=== PATIENT | male | born 1965 | race Caucasian/White ===

== ENCOUNTER 2021-04-08 15:56 | Emergency (ER) | payer SELFPAY | END 2021-04-09 02:37 | disposition left against medical advice (07) | LOC: ANHED 16:26 | DX: Z53.21 Procedure and treatment not carried out due to patient leaving prior to being seen by health care provider (principal) | CPT/HCPCS: 99199 ==

== ENCOUNTER 2021-04-13 13:53 | Emergency (ER) | payer SELFPAY ==
[2021-04-13 13:59] VITALS: BP 147/87; PULSE 102; RESP 17; TEMP 36.4; O2SAT 100
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
[2021-04-13] MEDS: KETOROLAC 30 MG/ML VIAL (*BKC) IM (14:39)
== END 2021-04-13 14:42 | disposition home or self-care (01) ==
LOC: ANHED 14:35
PROVIDERS: Emergency Provider Emergency Medicine
DX: S30.0XXA Contusion of lower back and pelvis, initial encounter (principal); F17.200 Nicotine dependence, unspecified, uncomplicated; Y35.813A Legal intervention involving manhandling, suspect injured, initial encounter
CPT/HCPCS: 96372; 99283; J1885

== ENCOUNTER 2022-06-13 14:58 | Emergency (ER) | payer MEDICAID, SELFPAY ==
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
[2022-06-13 15:27] VITALS: BP 145/88; PULSE 101; RESP 16; TEMP 37.3; O2SAT 97
== END 2022-06-13 15:39 | disposition short-term general hospital (02) ==
PROVIDERS: Emergency Provider Registered Nurse
DX: S81.801A Unspecified open wound, right lower leg, initial encounter (principal); S81.002A Unspecified open wound, left knee, initial encounter; L03.116 Cellulitis of left lower limb; L03.115 Cellulitis of right lower limb; V18.4XXA Pedal cycle driver injured in noncollision transport accident in traffic accident, initial encounter; F17.210 Nicotine dependence, cigarettes, uncomplicated
CPT/HCPCS: 99212; G0463

== ENCOUNTER 2022-06-13 16:01 | Observation (INO) | payer MEDICAID, SELFPAY ==
--- NOTE | ~2022-06-13 | US_ITS ---
EXAMINATION: US arterial ankle brachial ind DATE: 06/16/2022 08:26 INDICATION: Peripheral arterial disease. TECHNIQUE: Segmental pressures and plethysmographic and Doppler waveforms of the brachial and lower e xtremity arteries were obtained. COMPARISON: None. FINDINGS: Right and left brachial artery pressures of 123 mm Hg and 113 mm Hg, respectively, are concordant (no rmal difference <= 30 mmHg). The right ankle-brachial index (ALINA) is 1.31 (normal >= 0.9-1.0). The right great toe-brachial index (TBI) is 0.72 (normal >= 0.65). Arterial Doppler waveforms are at least triphasic at the ankle. The left ALINA is 1.26. The left TBI is 0.64. Arterial Doppler waveforms are at least triphasic at the ankle. IMPRESSION: 1. Borderline decreased left TBI, consistent with left-sided arterial occlusive disease. Note that AB I may be overestimated if arteries are calcified. Reviewed, dictated and finalized at location A. TICS DIRECTOR IMPRESSION: 1. Borderline decreased left TBI, consistent with left-sided arterial occlusive disease. Note that ALINA may be overestimated if arteries are calcified.
[2022-06-13 16:07] VITALS: BP 158/90; PULSE 84; RESP 17; TEMP 36.9; O2SAT 96
[2022-06-13 17:11] LABS: Basophils Absolute Auto 0.1 K/mm3 (0.0-0.1); Basophils Percent Auto 0.5 % (0.2-1.2); Eosinophils Absolute Auto 0.1 K/mm3 (0-0.3); Eosinophils Percent Auto 0.9 % (0-4.4); Hematocrit 43.9 % (42.0-52.0); Hemoglobin 14.8 g/dL (14.0-18.0); Immature Granulocyte Absolute 0.05 K/mm3 (0.00-0.031); Immature Granulocyte Percent A 0.5 % (0-0.5); Lymphocytes Absolute Auto 2.04 K/mm3 (0.9-3.2); Lymphocytes Percent Auto 21.2 % (18.3-44.2); Mean Corpuscular HGB Conc 33.7 g/dl (32-36); Mean Corpuscular Hemoglobin 31.4 pg (26-34); Mean Platelet Volume 9.8 fl (7.4-10.4); Monocytes Absolute Auto 1.1 K/mm3 (0.1-0.6); Neutrophils Absolute Auto 6.3 K/mm3 (1.3-6.7); Neutrophils Percent Auto 65.9 % (45.5-73.1); Platelet Count Result 326 k/mm3 (150-375); Red Blood Count 4.72 M/mm3 (4.6-6.20); Red Cell Distribution Width 12.4 % (11.5-14.5); White Blood Count 9.6 K/mm3 (4.5-10.0)
[2022-06-13 17:23] LABS: Alanine Aminotransferase 15 U/L (6-50); Albumin Level 4.2 g/dL (3.5-5.1); Alkaline Phosphatase 127 U/L (38-126); Anion Gap 7 mmol/L (8-16); Aspartate Amino Transferase 22 U/L (17-59); Bilirubin,Total 0.3 mg/dL (0.2-1.3); Blood Urea Nitrogen 10 mg/dL (9-20); Calcium 8.6 mg/dL (8.4-10.2); Carbon Dioxide 29 mmol/L (22-30); Chloride 102 mmol/L (98-107); Estimated CRCL calculation 80 ml/min; Estimated Glomerular Filt Rate > 60; Glucose 105 mg/dL (65-110); Lactic Acid Reflex 1.4 mmol/L (0.7-2.0); Potassium 3.4 mmol/L (3.4-5.0); Sodium 138 mmol/L (137-145)
[2022-06-13 17:50] LABS: Influenza A QL RT-PCR Negative (Negative); Influenza B QL RT-PCR Negative (Negative); SARS-CoV-2 RNA PCR Negative
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
[2022-06-13] MEDS: SODIUM CHLORIDE 0.9% IV 1,000 ML 150 ML IV CONT (18:05)
[2022-06-13 19:56] VITALS: BP 148/96; PULSE 92; RESP 16; O2SAT 99
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
[2022-06-13 21:18] VITALS: BP 164/88; PULSE 88; RESP 16; O2SAT 97
[2022-06-13] MEDS: NICOTINE (*PBKC) 21 MG PATCH 1 PATCH TRANSDERM (21:23)
[2022-06-13 21:36] VITALS: BMI 27.7
--- NOTE | 2022-06-13 21:45 | PC.NURSE ---
This patient, Pete May, was admitted to [facility] Surg Room 314-02. Patient/family oriented to hospital policies and general routines including ID bracelet, bed and alarms, visiting hours, pain management, procedures, bathroom and other care routines, personal items, smoking policy, room service/diet, and visiting hours. Information on how to activate the Rapid Response Team has been discussed. Patient/Family are encouraged to report perceived risks to care and to ask questions if they do not understand what they are told or what they should do.
[2022-06-13 21:47] VITALS: BP 153/95; PULSE 93; RESP 18; TEMP 36.2; O2SAT 99
[2022-06-13 21:48] VITALS: BMI 27.7
[2022-06-14 05:47] VITALS: BP 151/86; PULSE 80; RESP 18; TEMP 36.6; O2SAT 98
[2022-06-14 08:27] LABS: Glucose Point of Care 89 mg/dl (65-105)
[2022-06-14 08:43] LABS: Basophils Percent Auto 0.4 % (0.2-1.2); Eosinophils Absolute Auto 0.2 K/mm3 (0-0.3); Eosinophils Percent Auto 1.7 % (0-4.4); Hematocrit 37.9 % (42.0-52.0); Hemoglobin 12.7 g/dL (14.0-18.0); Immature Granulocyte Absolute 0.05 K/mm3 (0.00-0.031); Immature Granulocyte Percent A 0.6 % (0-0.5); Lymphocytes Absolute Auto 2.39 K/mm3 (0.9-3.2); Lymphocytes Percent Auto 26.7 % (18.3-44.2); Mean Corpuscular HGB Conc 33.5 g/dl (32-36); Mean Corpuscular Hemoglobin 31.7 pg (26-34); Mean Corpuscular Volume 94.5 fl (80-100); Mean Platelet Volume 10.2 fl (7.4-10.4); Monocytes Percent Auto 10.7 % (2.6-8.5); Neutrophils Absolute Auto 5.4 K/mm3 (1.3-6.7); Neutrophils Percent Auto 59.9 % (45.5-73.1); Platelet Count Result 263 k/mm3 (150-375); Red Blood Count 4.01 M/mm3 (4.6-6.20); Red Cell Distribution Width 12.4 % (11.5-14.5)
[2022-06-14 08:56] LABS: Anion Gap 3 mmol/L (8-16); Blood Urea Nitrogen 9 mg/dL (9-20); Calcium 7.9 mg/dL (8.4-10.2); Carbon Dioxide 28 mmol/L (22-30); Chloride 107 mmol/L (98-107); Estimated CRCL calculation 111 ml/min; Estimated Glomerular Filt Rate > 60; Glucose 106 mg/dL (65-110); Potassium 3.1 mmol/L (3.4-5.0); Sodium 138 mmol/L (137-145)
[2022-06-14] MEDS: POTASSIUM CHLORIDE 20 MEQ TABLET 40 MEQ PO (10:31)
[2022-06-14 10:39] LABS: Hemoglobin A1C 5.1 % (<5.7)
[2022-06-14 11:48] LABS: Glucose Point of Care 158 mg/dl (65-105)
[2022-06-14 14:00] VITALS: BP 126/78; PULSE 82; RESP 20; TEMP 36.4; O2SAT 97
[2022-06-14] MEDS: MUPIROCIN 2% OINT 22 GM TUBE 1 APPLIC TOPICAL (14:11)
[2022-06-14 16:47] LABS: Glucose Point of Care 112 mg/dl (65-105)
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
[2022-06-14 20:25] VITALS: BP 128/65; PULSE 79; RESP 16; TEMP 36.7; O2SAT 94
[2022-06-14] MEDS: NICOTINE (*PBKC) 4 MG GUM PO (21:24)
[2022-06-14] MEDS: NICOTINE (*PBKC) 21 MG PATCH 1 PATCH TRANSDERM (21:25)
[2022-06-14] MEDS: ACETAMINOPHEN 325 MG TABLET 650 MG PO (21:29)
[2022-06-14 21:52] LABS: Glucose Point of Care 115 mg/dl (65-105)
[2022-06-15 05:51] VITALS: BP 128/68; PULSE 72; RESP 18; TEMP 36.3; O2SAT 95
[2022-06-15 06:46] LABS: Hematocrit 37.1 % (42.0-52.0); Hemoglobin 12.2 g/dL (14.0-18.0); Mean Corpuscular HGB Conc 32.9 g/dl (32-36); Mean Corpuscular Hemoglobin 30.9 pg (26-34); Mean Corpuscular Volume 93.9 fl (80-100); Mean Platelet Volume 10.1 fl (7.4-10.4); Platelet Count Result 276 k/mm3 (150-375); Red Blood Count 3.95 M/mm3 (4.6-6.20); Red Cell Distribution Width 12.3 % (11.5-14.5); White Blood Count 7.5 K/mm3 (4.5-10.0)
[2022-06-15 07:04] LABS: Vancomycin Trough 10.4 ug/mL (10.0-20.0)
[2022-06-15 07:36] LABS: Anion Gap 2 mmol/L (8-16); Blood Urea Nitrogen 9 mg/dL (9-20); Calcium 8.3 mg/dL (8.4-10.2); Carbon Dioxide 28 mmol/L (22-30); Chloride 107 mmol/L (98-107); Estimated CRCL calculation 99 ml/min; Estimated Glomerular Filt Rate > 60; Glucose 92 mg/dL (65-110); Potassium 3.8 mmol/L (3.4-5.0); Sodium 137 mmol/L (137-145)
[2022-06-15 08:16] LABS: Glucose Point of Care 92 mg/dl (65-105)
[2022-06-15] MEDS: hydroCHLOROthiazide 25 MG TABLET PO (09:30)
[2022-06-15] MEDS: ENOXAPARIN 40 MG/0.4 ML SYRINGE SUB-Q (09:30)
--- NOTE | 2022-06-15 11:25 | PM.IMPN ---
Progress Note: A&P Assessment and Plan (1) Cellulitis of both lower extremities: Code(s): L03.115 - Cellulitis of right lower limb; L03.116 - Cellulitis of left lower limb Status: Acute Assessment and Plan: Started on vancomycin in the ER on June 13 and continued yesterday in the hospital, MRSA swab pending, will discontinue vancomycin at this time. If this was truly cellulitis as opposed to vascular disease, would need to broaden antibiotic coverage, however, no white count noted despite inadequate treatment. Will transition to doxycycline due to some possible improvement on vancomycin. Follow-up vascular studies. Appreciate wound care consultation, wound culture ordered A1c is 5.1 ABIs pending (2) Tobacco dependence: Code(s): F17.200 - Nicotine dependence, unspecified, uncomplicated Status: Acute Assessment and Plan: Pack and half a day smoker Plan DVT prophylaxis with Lovenox GI prophylaxis not indicated Code status full code Subjective Date/time seen: 06/15/22 11:25 Interval history: No overnight events noted. No chest pain or shortness of breath. No nausea, vomiting or diarrhea. No fevers or chills. Review of Systems Review of Systems: 12 point review of systems was assessed and was negative except as noted in the HPI Exam Narrative: General: No acute distress, alert and oriented per baseline HEENT: Atraumatic, normocephalic, mucous membranes moist CV: Regular rate and rhythm, S1, S2 Lungs: Clear to auscultation bilaterally, no rales or crackles noted, no wheezes, good air entry Abdomen: Soft, nontender, nondistended Extremities: Multiple scattered wounds with scabbing, some erythema surrounding the wounds, one on left knee about 5 cm across in diameter, a couple less than 3 cm on right knee, and a bandaged one on right tibia and right ankle, bandages are c/d/i, erythema improved per skin markings Skin: No rashes noted, no lesions or wounds seen Psych: Euthymic, normal affect Objective Data Vital Signs Vital Signs: Vital Signs - 24 hr 06/14/22 14:00 06/14/22 20:25 06/15/22 05:51 Temperature 97.5 F L 98.1 F 97.3 F L Pulse Rate 82 79 72 Respiratory Rate 20 16 18 Blood Pressure 126/78 128/65 128/68 Pulse Oximetry 97 94 95 Oxygen Delivery 01/01/23 08:00 Temperature Pulse Rate Respiratory Rate Blood Pressure Pulse Oximetry Oxygen Delivery Room Air Intake/Output Intake/Output: Intake & Output 06/12/22 06/13/22 06/14/22 06/15/22 23:59 23:59 23:59 23:59 Intake Total 500 3210 1030 Output Total 1740 1500 Balance 500 1470 -470 Meds/Results Medications: Active Medications Generic Name Dose Route Start Last Admin Trade Name Freq PRN Reason Stop Dose Admin Acetaminophen 650 mg 06/13/22 17:50 06/14/22 21:29 Acetaminophen 325 Mg Tablet PO 650 mg Q4H PRN Administration Mild Pain (1-3) or Fever Dextrose 12.5 gm 06/14/22 02:26 Dextrose 50% 25 Gm/50 Ml Syringe IV PUSH PRN PRN Hypoglycemia Protocol Enoxaparin Sodium 40 mg 06/14/22 09:00 06/15/22 09:30 Enoxaparin 40 Mg/0.4 Ml Syringe SUB-Q 40 mg DAILY KINZA Administration Glucagon 1 mg 06/14/22 02:26 Glucagon For Inj 1 Mg Vial IM PRN PRN Hypoglycemia Protocol Glucose 15 gm 06/14/22 02:26 Glucose Oral Gel 15 Gm Of Glucse In 37.5 Gm Tube PO PRN PRN Hypoglycemia Protocol Hydrochlorothiazide 25 mg 06/15/22 09:00 06/15/22 09:30 Hydrochlorothiazide 25 Mg Tablet PO 25 mg QAM KINZA Administration Dextrose 1,000 mls @ 100 mls/hr 06/14/22 02:26 Dextrose 5% 1,000 Ml IVPB PRN PRN Hypoglycemia Protocol Vancomycin HCl 1,500 mg in 500 mls @ 333.333 mls/hr 06/15/22 21:00 Vancomycin 1,500 Mg/D5w 500 Ml IVPB Q12H KINZA Insulin Aspart 3 - 6 units 06/14/22 08:00 06/15/22 08:18 Insulin Aspart (*Bkc) 100 Units/Ml SUB-Q Not Given TIDWM KINZA Protocol
[2022-06-15 11:41] LABS: Glucose Point of Care 180 mg/dl (65-105)
[2022-06-15 14:00] VITALS: BP 123/80; PULSE 76; RESP 20; TEMP 36.2; O2SAT 98
[2022-06-15] MEDS: DOXYCYCLINE HYCLATE 100 MG TABLET PO ×2 (15:28→20:09)
[2022-06-15 16:57] LABS: Glucose Point of Care 102 mg/dl (65-105)
[2022-06-15 20:25] LABS: Glucose Point of Care 122 mg/dl (65-105)
[2022-06-15 21:37] VITALS: BP 108/73; PULSE 82; RESP 18; TEMP 36.6; O2SAT 95
[2022-06-15] MEDS: NICOTINE (*PBKC) 4 MG GUM PO (21:49)
[2022-06-15] MEDS: LORazepam (*CRX) 0.5 MG TABLET PO (22:47)
[2022-06-16 05:49] VITALS: BP 123/76; PULSE 71; RESP 18; TEMP 36.7; O2SAT 97
[2022-06-16 07:02] LABS: Hematocrit 40.3 % (42.0-52.0); Hemoglobin 13.1 g/dL (14.0-18.0); Mean Corpuscular HGB Conc 32.5 g/dl (32-36); Mean Corpuscular Hemoglobin 31.1 pg (26-34); Mean Corpuscular Volume 95.7 fl (80-100); Platelet Count Result 294 k/mm3 (150-375); Red Blood Count 4.21 M/mm3 (4.6-6.20); Red Cell Distribution Width 12.4 % (11.5-14.5); White Blood Count 7.7 K/mm3 (4.5-10.0)
[2022-06-16 07:25] LABS: Blood Urea Nitrogen 10 mg/dL (9-20); Calcium 8.6 mg/dL (8.4-10.2); Carbon Dioxide 27 mmol/L (22-30); Estimated CRCL calculation 99 ml/min; Estimated Glomerular Filt Rate > 60; Glucose 89 mg/dL (65-110)
[2022-06-16 07:29] LABS: Anion Gap 4 mmol/L (8-16); Chloride 109 mmol/L (98-107); Potassium 3.8 mmol/L (3.4-5.0); Sodium 140 mmol/L (137-145)
--- NOTE | 2022-06-16 08:27 | PM.IMPN ---
Progress Note: A&P Assessment and Plan (1) Cellulitis of both lower extremities: Code(s): L03.115 - Cellulitis of right lower limb; L03.116 - Cellulitis of left lower limb Status: Acute Assessment and Plan: Started on vancomycin in the ER on June 13 and continued yesterday in the hospital, MRSA swab pending, will discontinue vancomycin at this time. If this was truly cellulitis as opposed to vascular disease, would need to broaden antibiotic coverage, however, no white count noted despite inadequate treatment. Will transition to doxycycline due to some possible improvement on vancomycin. Follow-up vascular studies. Appreciate wound care consultation, wound culture ordered A1c is 5.1 ABIs pending (2) Tobacco dependence: Code(s): F17.200 - Nicotine dependence, unspecified, uncomplicated Status: Acute Assessment and Plan: Pack and half a day smoker Plan DVT prophylaxis with Lovenox GI prophylaxis not indicated Code status full code Subjective Date/time seen: 06/16/22 08:27 Interval history: No overnight events noted. No chest pain or shortness of breath. No nausea, vomiting or diarrhea. No fevers or chills. Exam Narrative: General: No acute distress, alert and oriented per baseline HEENT: Atraumatic, normocephalic, mucous membranes moist CV: Regular rate and rhythm, S1, S2 Lungs: Clear to auscultation bilaterally, no rales or crackles noted, no wheezes, good air entry Abdomen: Soft, nontender, nondistended Extremities: Multiple scattered wounds with scabbing, some erythema surrounding the wounds, one on left knee about 5 cm across in diameter, a couple less than 3 cm on right knee, and a bandaged one on right tibia and right ankle, bandages are c/d/i, erythema improved per skin markings Skin: No rashes noted, no lesions or wounds seen Psych: Euthymic, normal affect Objective Data Vital Signs Vital Signs: Vital Signs - 24 hr 06/15/22 14:00 06/15/22 19:46 06/15/22 21:37 Temperature 97.1 F L 97.8 F Pulse Rate 76 82 Respiratory Rate 20 18 Blood Pressure 123/80 108/73 Pulse Oximetry 98 95 Oxygen Delivery Room Air 06/16/22 05:49 Temperature 98.1 F Pulse Rate 71 Respiratory Rate 18 Blood Pressure 123/76 Pulse Oximetry 97 Oxygen Delivery Intake/Output Intake/Output: Intake & Output 06/13/22 06/14/22 06/15/22 06/16/22 23:59 23:59 23:59 23:59 Intake Total 500 3210 2190 250 Output Total 1740 3200 1800 Balance 500 1470 -1010 -1550 Meds/Results Medications: Active Medications Generic Name Dose Route Start Last Admin Trade Name Freq PRN Reason Stop Dose Admin Acetaminophen 650 mg 06/13/22 17:50 06/14/22 21:29 Acetaminophen 325 Mg Tablet PO 650 mg Q4H PRN Administration Mild Pain (1-3) or Fever Dextrose 12.5 gm 06/14/22 02:26 Dextrose 50% 25 Gm/50 Ml Syringe IV PUSH PRN PRN Hypoglycemia Protocol Doxycycline Hyclate 100 mg 06/15/22 14:35 06/15/22 20:09 Doxycycline Hyclate 100 Mg Tablet PO 100 mg Q12HR KINZA Administration Enoxaparin Sodium 40 mg 06/14/22 09:00 06/15/22 09:30 Enoxaparin 40 Mg/0.4 Ml Syringe SUB-Q 40 mg DAILY KINZA Administration Glucagon 1 mg 06/14/22 02:26 Glucagon For Inj 1 Mg Vial IM PRN PRN Hypoglycemia Protocol Glucose 15 gm 06/14/22 02:26 Glucose Oral Gel 15 Gm Of Glucse In 37.5 Gm Tube PO PRN PRN Hypoglycemia Protocol Hydrochlorothiazide 25 mg 06/15/22 09:00 06/15/22 09:30 Hydrochlorothiazide 25 Mg Tablet PO 25 mg QAM KINZA Administration Dextrose 1,000 mls @ 100 mls/hr 06/14/22 02:26 Dextrose 5% 1,000 Ml IVPB PRN PRN Hypoglycemia Protocol Insulin Aspart 3 - 6 units 06/14/22 08:00 06/15/22 17:17 Insulin Aspart (*Bkc) 100 Units/Ml SUB-Q Not Given TIDWM KINZA Protocol Lorazepam 0.5 mg 06/15/22 22:22 06/15/22 22:47 Lorazepam (*Crx) 0.5 Mg Tablet PO 0.5 mg Q
[2022-06-16 08:34] LABS: Glucose Point of Care 91 mg/dl (65-105)
[2022-06-16 08:36] LABS: Basophils Percent Auto 0.3 % (0.2-1.2); Eosinophils Absolute Auto 0.2 K/mm3 (0-0.3); Eosinophils Percent Auto 2.2 % (0-4.4); Hematocrit 40.1 % (42.0-52.0); Hemoglobin 13.1 g/dL (14.0-18.0); Immature Granulocyte Absolute 0.05 K/mm3 (0.00-0.031); Immature Granulocyte Percent A 0.6 % (0-0.5); Lymphocytes Absolute Auto 1.78 K/mm3 (0.9-3.2); Lymphocytes Percent Auto 22.8 % (18.3-44.2); Mean Corpuscular HGB Conc 32.7 g/dl (32-36); Mean Corpuscular Hemoglobin 31.2 pg (26-34); Mean Corpuscular Volume 95.5 fl (80-100); Mean Platelet Volume 10.4 fl (7.4-10.4); Monocytes Percent Auto 12.7 % (2.6-8.5); Neutrophils Absolute Auto 4.8 K/mm3 (1.3-6.7); Neutrophils Percent Auto 61.4 % (45.5-73.1); Platelet Count Result 298 k/mm3 (150-375); Red Cell Distribution Width 12.5 % (11.5-14.5); White Blood Count 7.8 K/mm3 (4.5-10.0)
[2022-06-16 08:46] LABS: CRP 1.1 mg/dL (<1.0)
[2022-06-16] MEDS: NICOTINE (*PBKC) 21 MG PATCH 1 PATCH TRANSDERM (08:46)
[2022-06-16] MEDS: ENOXAPARIN 40 MG/0.4 ML SYRINGE SUB-Q (08:46)
[2022-06-16] MEDS: DOXYCYCLINE HYCLATE 100 MG TABLET PO (08:47)
[2022-06-16] MEDS: hydroCHLOROthiazide 25 MG TABLET PO (08:47)
[2022-06-16 08:59] LABS: Erythrocyte Sedimentation Rate 68 mm/hr (0-20); Procalcitonin 0.1 ng/mL
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
[2022-06-16 12:08] LABS: Glucose Point of Care 169 mg/dl (65-105)
[2022-06-16 14:02] VITALS: BP 121/74; PULSE 79; RESP 18; TEMP 36.3; O2SAT 96
== END 2022-06-16 14:45 | disposition home or self-care (01) ==
LOC: ANHED 18:00 → ANH3MEDSUR 21:21
PROVIDERS: Chiropractor; Family Medicine; Admitting Provider Student in an Organized Health Care Education/Training Program; Emergency Provider Family Medicine; Visit Provider Student in an Organized Health Care Education/Training Program
DX: L03.115 Cellulitis of right lower limb (principal); L03.116 Cellulitis of left lower limb; I10 Essential (primary) hypertension; Z20.822 Contact with and (suspected) exposure to COVID-19; F17.210 Nicotine dependence, cigarettes, uncomplicated; F10.90 Alcohol use, unspecified, uncomplicated
CPT/HCPCS: 36415; 80048; 80053; 80202; 82948; 83036; 83605; 84145; 85025; 85027; 85652; 86140; 87040; 87081; 87636; 93922; 96365; 96366; 96372; 96376; 99212; 99285; A9270; G0378; G0379; G0463; J1650; J3370; J7030

== ENCOUNTER 2022-09-11 15:43 | Emergency (ER) | payer BC, SELFPAY ==
--- NOTE | ~2022-09-11 | XR_ITS ---
EXAMINATION: XR ribs RT 2V w CXR 2V INDICATION: Chest pain after fall TECHNIQUE: Frontal and lateral views of the chest and 3 views of the right ribs were obtained. COMPARISON: 09/02/2022 FINDINGS: The lungs are free of acute opacities. No pleural effusion or pneumothorax. The cardiomedia stinal silhouette is normal. There is moderate thoracic spondylosis. There is a minimally displaced f racture at the anterolateral aspect of the right seventh rib. There is an age-indeterminate fracture at the anterolateral aspect of the right 10th rib. IMPRESSION: 1. No acute cardiopulmonary abnormality. 2. Minimally displaced fracture at the anterolateral aspect of the right seventh rib and age indeterm inate fracture at the anterolateral aspect of the right 10th rib. Reviewed, dictated and finalized at location F. IMPRESSION: 1. No acute cardiopulmonary abnormality. 2. Minimally displaced fracture at the anterolateral aspect of the right sevent h rib and age indeterminate fracture at the anterolateral aspect of the right 1 0th rib.
[2022-09-11 15:46] VITALS: BP 119/72; PULSE 96; RESP 16; TEMP 36.1; O2SAT 96
[2022-09-11 16:49] VITALS: BP 160/86; PULSE 100; RESP 18; O2SAT 99
[2022-09-11 17:02] VITALS: PULSE 86
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
== END 2022-09-11 17:11 | disposition home or self-care (01) ==
LOC: ANHED 17:01
PROVIDERS: Emergency Provider Nurse Practitioner Family
DX: S22.31XA Fracture of one rib, right side, initial encounter for closed fracture (principal); F17.210 Nicotine dependence, cigarettes, uncomplicated; Y04.2XXA Assault by strike against or bumped into by another person, initial encounter
CPT/HCPCS: 71046; 71100; 99283

== ENCOUNTER 2022-09-24 14:10 | Emergency (ER) | payer BC, SELFPAY | END 2022-09-24 14:51 | disposition left against medical advice (07) | DX: Z53.21 Procedure and treatment not carried out due to patient leaving prior to being seen by health care provider (principal) | CPT/HCPCS: 99199 ==

== ENCOUNTER 2022-10-03 13:39 | Emergency (ER) | payer BC, SELFPAY ==
[2022-10-03 14:10] VITALS: BP 106/70; PULSE 86; RESP 16; TEMP 36.6; O2SAT 94
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
[2022-10-03] MEDS: METOCLOPRAMIDE HCL INJ 10 MG/2 ML VIAL IM (15:34)
[2022-10-03] MEDS: LIDOCAINE 5% PATCH 1 PATCH TRANSDERM (15:34)
[2022-10-03] MEDS: ACETAMINOPHEN 500 MG TABLET 1000 MG PO (15:34)
[2022-10-03] MEDS: diphenhydrAMINE HCl CAP 25 MG CAPSULE PO (15:37)
[2022-10-03 15:40] VITALS: BP 118/73; PULSE 84; RESP 14; O2SAT 96
[2022-10-03 16:15] VITALS: BP 116/70; PULSE 74; RESP 12; O2SAT 98
== END 2022-10-03 16:15 | disposition home or self-care (01) ==
LOC: ANHED 16:41
PROVIDERS: Emergency Provider Emergency Medicine
DX: R51.9 Headache, unspecified (principal); R07.81 Pleurodynia; F17.210 Nicotine dependence, cigarettes, uncomplicated
CPT/HCPCS: 96372; 99283; A9270; J2765

== ENCOUNTER 2023-09-07 18:45 | Emergency (ER) | payer BC, SELFPAY ==
--- NOTE | ~2023-09-07 | XR_ITS ---
EXAMINATION: XR chest 2V DATE: 09/07/2023 19:12 INDICATION: Shortness of breath TECHNIQUE: Frontal and lateral views of the chest are obtained COMPARISON: 09/11/2022 FINDINGS: The lungs are free of acute opacities. No pleural effusion or pneumothorax. The cardiomedia stinal silhouette is normal. The visualized bones and soft tissues are unremarkable. IMPRESSION: 1. No acute cardiopulmonary abnormality. Reviewed, dictated and finalized at location F.
--- NOTE | 2023-09-07 18:47 | ECG_ITS ---
Measurements Intervals [place] Rate: 106 P: 57 [place]: 156 QRS: 49 QRSD: 89 T: 66 QT: 324 QTc: 432 Interpretive Statements SINUS TACHYCARDIA MISSING LEAD V3 BORDERLINE ECG NO PREVIOUS ECG AVAILABLE FOR COMPARISON Electronically Signed On 09-07-2023 19:36:27 CDT by Abimael Garland D.O.
[2023-09-07 18:50] VITALS: BP 147/88; PULSE 99; RESP 20; TEMP 37; O2SAT 96
[2023-09-07 19:05] LABS: Basophils Percent Auto 0.4 % (0.2-1.2); Eosinophils Absolute Auto 0.1 K/mm3 (0-0.3); Eosinophils Percent Auto 1.2 % (0-4.4); Hemoglobin 15.8 g/dL (14.0-18.0); Immature Granulocyte Absolute 0.04 K/mm3 (0.00-0.031); Immature Granulocyte Percent A 0.4 % (0-0.5); Lymphocytes Absolute Auto 1.61 K/mm3 (0.9-3.2); Lymphocytes Percent Auto 15.2 % (18.3-44.2); Mean Corpuscular HGB Conc 33.6 g/dl (32-36); Mean Corpuscular Volume 95.1 fl (80-100); Mean Platelet Volume 11.3 fl (7.4-10.4); Monocytes Absolute Auto 0.9 K/mm3 (0.1-0.6); Monocytes Percent Auto 8.5 % (2.6-8.5); Neutrophils Absolute Auto 7.8 K/mm3 (1.3-6.7); Neutrophils Percent Auto 74.3 % (45.5-73.1); Platelet Count Result 207 k/mm3 (150-375); Red Blood Count 4.94 M/mm3 (4.6-6.20); Red Cell Distribution Width 11.8 % (11.5-14.5); White Blood Count 10.6 K/mm3 (4.5-10.0)
[2023-09-07 19:15] LABS: Alanine Aminotransferase 21 U/L (6-50); Albumin Level 4.3 g/dL (3.5-5.1); Alkaline Phosphatase 103 U/L (38-126); Anion Gap 4 mmol/L (8-16); Aspartate Amino Transferase 29 U/L (17-59); Bilirubin,Total 0.5 mg/dL (0.2-1.3); Blood Urea Nitrogen 10 mg/dL (9-20); Calcium 9.4 mg/dL (8.4-10.2); Carbon Dioxide 25 mmol/L (22-30); Chloride 109 mmol/L (98-107); Estimated CRCL calculation 112 ml/min; Estimated Glomerular Filt Rate > 60; Glucose 79 mg/dL (65-110); Potassium 4.1 mmol/L (3.4-5.0); Sodium 138 mmol/L (137-145)
[2023-09-07 19:16] LABS: Anion Gap 7 mmol/L (8-16); Blood Urea Nitrogen 10 mg/dL (9-20); Calcium 9.4 mg/dL (8.4-10.2); Carbon Dioxide 23 mmol/L (22-30); Chloride 109 mmol/L (98-107); Estimated CRCL calculation 112 ml/min; Estimated Glomerular Filt Rate > 60; Glucose 79 mg/dL (65-110); Potassium 4.1 mmol/L (3.4-5.0); Sodium 139 mmol/L (137-145)
[2023-09-07 23:04] VITALS: BP 141/90; PULSE 90; RESP 17; O2SAT 95
[2023-09-07 23:34] LABS: Influenza A QL RT-PCR Negative (Negative); Influenza B QL RT-PCR Negative (Negative); RSV RNA, RT-PCR Negative (Negative); SARS-CoV-2 RNA PCR Negative (Negative)
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
[2023-09-07 23:43] LABS: NT Pro B Type Natriuretic Pept 419 pg/mL (19.9-100); Troponin I < 0.012 ng/mL (0.000-0.034)
[2023-09-07 23:58] VITALS: PULSE 86
[2023-09-08 01:24] LABS: Ethanol < 10 mg/dL (<10)
[2023-09-08 01:27] LABS: D Dimer 0.29 ug/mL (<0.48)
[2023-09-08 01:41] LABS: Troponin I < 0.012 ng/mL (0.000-0.034)
[2023-09-08 02:09] VITALS: BP 135/94; PULSE 83; RESP 14; O2SAT 98
== END 2023-09-08 02:11 | disposition home or self-care (01) ==
PROVIDERS: Emergency Medicine; Emergency Provider Physician Assistant
DX: R06.00 Dyspnea, unspecified (principal); R07.89 Other chest pain; Z20.822 Contact with and (suspected) exposure to COVID-19; F17.210 Nicotine dependence, cigarettes, uncomplicated; R00.0 Tachycardia, unspecified
CPT/HCPCS: 36415; 71046; 80048; 80053; 80307; 83880; 84484; 85025; 85380; 87637; 93005; 99284

== ENCOUNTER 2023-09-22 09:06 | Emergency (ER) | payer BC, SELFPAY ==
[2023-09-22 09:20] VITALS: BP 137/89; PULSE 83; RESP 16; TEMP 36.2; O2SAT 99
--- NOTE | 2023-09-22 10:17 | ED.WOUNDLAC ---
HPI - Wound/Laceration General Chief Complaint: Wound/Laceration Stated Complaint: Wound Time Seen by Provider: 09/22/23 10:12 Source: patient Mode of arrival: ambulatory Limitations: no limitations History of Present Illness HPI narrative: 57 year old male who presents to [facility] care with complaints of old laceration to his left thumb from 2 weeks ago where he cut it with a knife. atient reports that he put super glue on laceration and now he is concerned for some infection. Patient has some mild redness to edges of 1.5 cm healing laceration . Patient denies any fevers, chills or any sweats. Onset (ago): week(s) (2) Location: other (left inner side of distal thumb area) Patient tetanus UTD: Yes (patient reports) Treatments prior to arrival: other (superglued wound 2 weeks ago) Related Data Allergies Allergy/AdvReac Type Severity Reaction Status Date / Time No Known Allergies Allergy Unknown Other Verified 09/22/23 09:42 Review of Systems Review of Systems: CONSTITUTIONAL: Denies fever, chills, or sweats. CARDIOVASCULAR: Denies chest pain, palpitations, or edema. RESPIRATORY: Denies cough or dyspnea. SKIN: Reports wound to the inner side of distal left thumb no injury to nail 2 weeks ago that he superglued. MUSCULOSKELETAL: Denies musculoskeletal pain NEUROLOGIC: Denies numbness, or weakness. All systems reviewed & are unremarkable except as noted in HPI and below PMFSH Past Medical History Medical History Patient denies medical problems Tobacco dependence Surgical History Surgical History History of dental surgery Family History Family History Father Staph infection Social History Social History (Updated 09/23/23 @ 16:38 by Yoselyn Munguia NP) Social History: Very active, independent, daily smoker Smoking packs per day: 1.5 Smoking cigarettes per day: 30.0 Years smoked: 40 Smoking pack-years: 60.00 Smoking status: Current every day smoker Tobacco type: cigarettes Alcohol intake: current Drinks per week: 3 Substance use type: marijuana Last use: occasional Lack of Transportation: YES Lack of Food: Often True Current Housing: I Do Not Have Housing Concerned About Future Housing: No Difficulty Paying Gas/Electric Bills: YES Difficulty Paying for Meds: YES Currently Unemployed: YES Education: High School Diploma/GED Difficulty w/ Childcare or Family Care: No Spiritual care concerns: No Comments At time of signature, agree with nursing past medical, surgical, social and family history. There is no relevant family history pertinent to the presenting complaint Exam Narrative: GENERAL: Well-appearing, well-nourished, and in no acute distress. HEAD: Normocephalic, atraumatic. NECK: Supple.no lymphadenopathy CHEST: Clear to auscultation. No respiratory distress. HEART: Regular rate and rhythm. No murmur heard. Normal peripheral pulses. EXTREMITIES: Normal range of motion. No edema. SKIN: Warm, dry, no rash. Reports 1.5 cm wound to the left inner side of distal thumb with no injury to nail which occurred 2 weeks ago that he used superglue to close, no drainage or any acute redness or any fluctuance of tissue noted, patient reports some concern for infection, states he needs some kind of ointment to apply to wound. NEURO: No focal deficits. Alert and oriented x3.anxious Course Course Level of Care: Express Care Visit Vital Signs Vital signs: Vital Signs Temperature 36.2 C L 09/22/23 09:20 Pulse Rate 83 09/22/23 09:20 Respiratory Rate 16 09/22/23 09:20 Blood Pressure 137/89 09/22/23 09:20 Pulse Oximetry 99 09/22/23 09:20 Temperature 36.2 C L 09/22/23 09:20 Pulse Rate 83 09/22/23 09:20 Respiratory Rate 16 09/22/23 09:20 Blood Pressure 137/89 09/22/23 09:2
== END 2023-09-22 10:36 | disposition home or self-care (01) ==
PROVIDERS: Emergency Provider Registered Nurse
DX: S61.012A Laceration without foreign body of left thumb without damage to nail, initial encounter (principal); W26.0XXA Contact with knife, initial encounter; F17.210 Nicotine dependence, cigarettes, uncomplicated; F12.90 Cannabis use, unspecified, uncomplicated
CPT/HCPCS: 99213; G0463

== ENCOUNTER 2024-02-10 03:49 | Emergency (ER) | payer BC, SELFPAY ==
--- NOTE | ~2024-02-10 | XR_ITS ---
Right foot Technique: AP, oblique, and lateral views were obtained. Clinical History: First toe injury Findings: There is comminuted, minimally displaced fracture of the distal phalanx of the great toe. N o intra-articular extension. Remaining osseous structures are intact. Joint spaces are preserved with out erosive or degenerative change. Soft tissues are unremarkable. Impression: . Comminuted, minimally displaced fracture of the distal phalanx of the great toe, as above. Reviewed, dictated and finalized at location M. Impression: . Comminuted, minimally displaced fracture of the distal phalanx of the great t oe, as above.
[2024-02-10 03:55] VITALS: BP 119/67; PULSE 100; RESP 18; TEMP 36.6; O2SAT 98
--- NOTE | 2024-02-10 06:22 | ED.GENADULT ---
HPI - General Adult General Chief complaint: Extremity Injury, Lower Stated complaint: busted nail off big toe on right foot Time Seen by Provider: 02/10/24 04:31 History of Present Illness HPI narrative: Patient is a 58-year-old male who presents to the emergency department this morning complaining of right great toe injury. Patient states that he dropped 4 x 8 she had of concrete on his right great toe. Patient noticed that the injury cause his toenail to avulse and he put super glue on the toe and underneath it were hematoma was developing to stop bleeding and keep the toe in place. Patient continued to go about his day and noticed that as he was walking he continued to bleed and he finally decided to come to the emergency department for further evaluation. Denies any additional injuries or concerns at this time. Tetanus is up-to-date. Related Data Allergies Allergy/AdvReac Type Severity Reaction Status Date / Time No Known Allergies Allergy Unknown Other Verified 09/22/23 09:42 Review of Systems Review of Systems: All systems are reviewed and are negative unless stated otherwise in the HPI. [facility] Past Medical History Medical History Patient denies medical problems Tobacco dependence Surgical History Surgical History History of dental surgery Family History Family History Father Staph infection Social History Social History Social History: Very active, independent, daily smoker Smoking packs per day: 1.5 Smoking cigarettes per day: 30.0 Years smoked: 40 Smoking pack-years: 60.00 Smoking status: Current every day smoker Tobacco type: cigarettes Alcohol intake: current Drinks per week: 3 Substance use type: marijuana Last use: occasional Lack of Transportation: YES Lack of Food: Often True Current Housing: I Do Not Have Housing Concerned About Future Housing: No Difficulty Paying Gas/Electric Bills: YES Difficulty Paying for Meds: YES Currently Unemployed: YES Education: High School Diploma/GED Difficulty w/ Childcare or Family Care: No Spiritual care concerns: No Exam Narrative: General: Alert, awake, afebrile, in no acute distress. HEENT: PERRL, no rhinorrhea, no post nasal drip, oropharynx clear. Cardiovascular: Regular rate and rhythm, no murmurs, rubs or gallops, no peripheral edema. Respiratory: Clear to auscultation bilaterally, no tachypnea, no wheezing, no rhonchi, no rubs, no respiratory distress. Abdomen: Soft, nontender, nondistended, no rebound, no guarding, no peritoneal signs. Musculoskeletal: Right great toenail near complete avulsion with underlying nail bed injury and hematoma, mild ecchymosis noted along the right great toe, no tenderness to palpation over the base of the 5th metatarsal and midfoot. Skin: No rashes or petechia, no signs of infection. Neurological: Alert and oriented to person, place, and time. Follows all commands. No focal deficits, speech is clear and fluent. Course Vital Signs Vital signs: Vital Signs Temperature 98 F 02/10/24 03:55 Pulse Rate 100 02/10/24 03:55 Respiratory Rate 18 02/10/24 03:55 Blood Pressure 119/67 02/10/24 03:55 Pulse Oximetry 98 02/10/24 03:55 Temperature 98 F 02/10/24 03:55 Pulse Rate 100 02/10/24 03:55 Respiratory Rate 18 02/10/24 03:55 Blood Pressure 119/67 02/10/24 03:55 Pulse Oximetry 98 02/10/24 03:55 Procedures Laceration Laceration 1: Date: 02/10/24 Time: 06:30 Site: lower extremity and other (Right great toe nailbed injury) Side (If applicable): right Size (cm): 1 Description: irregular Depth: simple, single layer Local Anesthetic: lidocaine 1% Amount of anesthesi
[2024-02-10] MEDS: HYDROGEN PEROXIDE 3% SOLN(*SP) 473 ML BOTTLE (06:46)
[2024-02-10] MEDS: HYDROcodone/acetaminophen (*CRX) 10-325 MG TABLET 1 TAB PO (07:31)
== END 2024-02-10 08:30 | disposition home or self-care (01) ==
PROVIDERS: Emergency Provider Emergency Medicine
DX: S92.421A Displaced fracture of distal phalanx of right great toe, initial encounter for closed fracture (principal); S91.201A Unspecified open wound of right great toe with damage to nail, initial encounter; L08.9 Local infection of the skin and subcutaneous tissue, unspecified; F17.210 Nicotine dependence, cigarettes, uncomplicated; W20.8XXA Other cause of strike by thrown, projected or falling object, initial encounter
CPT/HCPCS: 11730; 12001; 73630; 99284; A9270

== ENCOUNTER 2024-03-12 03:58 | Emergency (ER) | payer BC, SELFPAY ==
--- NOTE | ~2024-03-12 | XR_ITS ---
XR tibia fibula RT 2V 03/12/2024 06:11 Indication: Right leg pain Procedure: 2 views right tibia/fibula Comparison: No prior studies for comparison. Findings: No fracture, subluxation or dislocation. No soft tissue abnormality. No foreign bodies. Impression: 1: No significant bone or joint abnormality. Reviewed, dictated and finalized at location B. Impression: 1: No significant bone or joint abnormality.
--- NOTE | ~2024-03-12 | XR_ITS ---
XR femur LT min 2V 03/12/2024 06:11 Indication: Left femur pain Procedure: Left leg pain. Skin infection. Comparison: No prior studies for comparison. Findings: No fracture, subluxation or dislocation. No focal soft tissue abnormality. No foreign tello s. Mild osteoarthritis of the left hip. Impression: 1: No significant bone or joint abnormality. Reviewed, dictated and finalized at location B. Impression: 1: No significant bone or joint abnormality.
[2024-03-12 04:06] VITALS: BP 110/96; PULSE 102; RESP 20; TEMP 36.6; O2SAT 98
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
[2024-03-12] MEDS: TETANUS,DIPHTHERIA,AC PERTUSSIS ADULT (0.5 ML) BOOSTRIX IM (06:26)
[2024-03-12] MEDS: ceFAZolin 2 GM/D5W 50 ML 2 GM/50 ML BAG IVPB (06:27)
[2024-03-12] MEDS: LACTATED RINGERS 1,000 ML 999 ML IV CONT (06:28)
[2024-03-12 06:34] VITALS: BP 130/84; PULSE 91; RESP 16; O2SAT 97
[2024-03-12 06:37] LABS: Basophils Percent Auto 0.4 % (0.2-1.2); Eosinophils Absolute Auto 0.1 K/mm3 (0-0.3); Eosinophils Percent Auto 1.3 % (0-4.4); Hematocrit 42.2 % (42.0-52.0); Hemoglobin 14.1 g/dL (14.0-18.0); Immature Granulocyte Absolute 0.04 K/mm3 (0.00-0.031); Immature Granulocyte Percent A 0.5 % (0-0.5); Lymphocytes Absolute Auto 1.34 K/mm3 (0.9-3.2); Lymphocytes Percent Auto 17.7 % (18.3-44.2); Mean Corpuscular HGB Conc 33.4 g/dl (32-36); Mean Corpuscular Hemoglobin 32.6 pg (26-34); Mean Corpuscular Volume 97.5 fl (80-100); Mean Platelet Volume 9.7 fl (7.4-10.4); Monocytes Absolute Auto 0.8 K/mm3 (0.1-0.6); Monocytes Percent Auto 10.2 % (2.6-8.5); Neutrophils Absolute Auto 5.3 K/mm3 (1.3-6.7); Neutrophils Percent Auto 69.9 % (45.5-73.1); Platelet Count Result 273 k/mm3 (150-375); Red Blood Count 4.33 M/mm3 (4.6-6.20); White Blood Count 7.6 K/mm3 (4.5-10.0)
[2024-03-12 06:49] LABS: Anion Gap 8 mmol/L (4-12); Blood Urea Nitrogen 7 mg/dL (9-20); Calcium 8.8 mg/dL (8.4-10.2); Carbon Dioxide 25 mmol/L (22-30); Chloride 109 mmol/L (98-107); Estimated CRCL calculation 109 ml/min; Estimated Glomerular Filt Rate > 60; Glucose 112 mg/dL (65-110); Magnesium 2.1 mg/dL (1.6-2.3); Potassium 3.4 mmol/L (3.4-5.0); Sodium 142 mmol/L (137-145)
[2024-03-12 08:13] VITALS: BP 132/85; PULSE 91; RESP 13; TEMP 36.5; O2SAT 97
== END 2024-03-12 08:20 | disposition home or self-care (01) ==
PROVIDERS: Emergency Provider Student in an Organized Health Care Education/Training Program
DX: L03.116 Cellulitis of left lower limb (principal); L03.115 Cellulitis of right lower limb; I73.9 Peripheral vascular disease, unspecified; Z23 Encounter for immunization; F17.210 Nicotine dependence, cigarettes, uncomplicated
CPT/HCPCS: 36415; 73552; 73590; 80048; 83735; 85025; 90471; 90715; 96361; 96365; 99284; J0690; J7120

== ENCOUNTER 2025-02-08 08:40 | Emergency (ER) | payer OTHER, BC, SELFPAY ==
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
[2025-02-08 08:50] VITALS: BP 116/72; PULSE 104; RESP 16; TEMP 37.3; O2SAT 98
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
== END 2025-02-08 09:40 | disposition home or self-care (01) ==
PROVIDERS: Emergency Provider Registered Nurse
DX: M25.561 Pain in right knee (principal); F17.210 Nicotine dependence, cigarettes, uncomplicated; V19.40XA Pedal cycle driver injured in collision with unspecified motor vehicles in traffic accident, initial encounter
CPT/HCPCS: 73564; 99213; G0463